=== PATIENT | female | born 1990 | race Caucasian/White ===

== ENCOUNTER 2018-03-23 19:15 | Emergency (ER) | payer SELFPAY ==
[~2018-03-23] VITALS: Ht 162.6 cm; Wt 83.6 kg
[~2018-03-23 19:15] MED LIST: AUGMENTIN875 MG OR; MACROBID100 MG PO; PRENATAL1 TA1 PO; ROBITUSS11 OR
[2018-03-23] MEDS ORDERED: BACTRIM DS1 TAB PO (19:51)
[2018-03-23] MEDS ORDERED: PERCOCET 5/325M1 TAB PO (19:51)
[2018-03-23] MEDS ORDERED: KEFLEX500 M1 PO (19:51)
[2018-03-23 20:34] VITALS: BP 122/83
== END 2018-03-23 20:34 | disposition home or self-care (01) | DRG 607 ==
LOC: ED 19:15
DX: S30.861A Insect bite (nonvenomous) of abdominal wall, initial encounter (principal); S80.861A Insect bite (nonvenomous), right lower leg, initial encounter; L08.9 Local infection of the skin and subcutaneous tissue, unspecified; W57.XXXA Bitten or stung by nonvenomous insect and other nonvenomous arthropods, initial encounter

== ENCOUNTER 2018-07-07 18:00 | Emergency (ER) | payer SELFPAY ==
[~2018-07-07] VITALS: Ht 162.6 cm; Wt 82.0 kg
[~2018-07-07 18:00] MED LIST changes: +BACTRIM DS1 TAB PO; +KEFLEX500 M1 PO; +PERCOCET 5/325M1 TAB PO
[2018-07-07] MEDS ORDERED: FLEXERIL PO (19:52)
[2018-07-07] MEDS ORDERED: LORTAB 1010 MG PO (19:52)
[2018-07-07] MEDS ORDERED: (None)3.5 GM OU (19:56)
[2018-07-07] MEDS ORDERED: GENTAMICIN15 ML/BTL OU (19:56)
[2018-07-07 20:00] VITALS: BP 112/77
== END 2018-07-07 20:43 | disposition home or self-care (01) | DRG 552 ==
LOC: ED 18:00
DX: M51.37 Other intervertebral disc degeneration, lumbosacral region (principal); M48.07 Spinal stenosis, lumbosacral region; H10.9 Unspecified conjunctivitis

== ENCOUNTER 2022-08-12 14:51 | Emergency (ER) | payer SELFPAY ==
[~2022-08-12] VITALS: Ht 162.6 cm; Wt 86.1 kg
[~2022-08-12 14:51] MED LIST changes: +(None)3.5 GM OU; +FLEXERIL PO; +GENTAMICIN15 ML/BTL OU; +LORTAB 1010 MG PO
[2022-08-12] MEDS ORDERED: MAXITROL0.1 % OD (15:40)
[2022-08-12 15:56] VITALS: BP 127/88
== END 2022-08-12 16:03 | disposition home or self-care (01) | DRG 125 ==
LOC: ED 14:51
DX: H18.821 Corneal disorder due to contact lens, right eye (principal)

== ENCOUNTER 2024-01-07 09:31 | Emergency (ER) | payer SELFPAY ==
[2024-01-07] VITALS (8 sets, daily range): BP systolic 114–148; BP diastolic 74–93
[~2024-01-07] VITALS: Ht 162.6 cm; Wt 98.0 kg
[~2024-01-07 09:31] MED LIST changes: +MAXITROL0.1 % OD
[2024-01-07] MEDS ORDERED: LIDOcaine HCl 1% (Local Anesth.) 20 ML VIAL IM STA (09:58)
[2024-01-07] MEDS ORDERED: DOXYCYCLINE100 MG PO (09:59)
[2024-01-07] MEDS ORDERED: cefTRIAXone SODIUM 1 GM/VIAL SDV IM ONE (10:00)
[2024-01-07 10:23] LABS: URINE BILIRUBIN - DIPSTICK Negative (NEGATIVE); URINE BLOOD DIPSTICK Small (NEGATIVE); URINE GLUCOSE - DIPSTICK Negative (NEGATIVE); URINE KETONE Negative (NEGATIVE); URINE NITRITE - DIPSTICK Negative (Negative); URINE PROTEIN - DIPSTICK 30 mg/dL (NEG-TRACE); URINE SPECIFIC GRAVITY >=1.030; URINE UROBILINOGEN - DIPSTICK 0.2 E.U./dL (0.2)
[2024-01-07 10:27] LABS: URINE COLOR Yellow; URINE LEUK ESTERASE Small (NEGATIVE)
[2024-01-07 10:28] LABS: URINE BACTERIA MODERATE hpf; URINE EPITHELIAL CELLS MODERATE EPI/hpf (0-FEW)
[2024-01-07 10:44] LABS: URINE TRICHOMONAS FEW hpf
[2024-01-07] MEDS ORDERED: METRONIDAZOLE500 MG PO (10:52)
== END 2024-01-07 11:04 | disposition home or self-care (01) | DRG 759 ==
LOC: ED 09:31
PROVIDERS: Family Medicine
DX: A59.01 Trichomonal vulvovaginitis (principal); E66.9 Obesity, unspecified

== ENCOUNTER 2024-07-03 14:02 | Emergency (ER) | payer SELFPAY ==
[~2024-07-03] VITALS: Ht 162.6 cm; Wt 82.0 kg
[~2024-07-03 14:02] MED LIST changes: +DOXYCYCLINE100 MG PO; +METRONIDAZOLE500 MG PO
[2024-07-03 14:31] LABS: URINE BILIRUBIN - DIPSTICK Negative (NEGATIVE); URINE BLOOD DIPSTICK Small (NEGATIVE); URINE GLUCOSE - DIPSTICK Negative (NEGATIVE); URINE KETONE Negative (NEGATIVE); URINE NITRITE - DIPSTICK Negative (Negative); URINE PH 5.5 (4.5-8.0); URINE PROTEIN - DIPSTICK Trace mg/dL (NEG-TRACE); URINE SPECIFIC GRAVITY >=1.030; URINE UROBILINOGEN - DIPSTICK 0.2 E.U./dL (0.2)
[2024-07-03 14:33] LABS: URINE COLOR Yellow; URINE EPITHELIAL CELLS MODERATE EPI/hpf (0-FEW); URINE LEUK ESTERASE Small (NEGATIVE)
[2024-07-03] MEDS ORDERED: METRONIDAZOLE500 MG PO (14:33)
[2024-07-03 14:34] LABS: URINE BACTERIA FEW hpf
[2024-07-03 14:53] VITALS: BP 132/97
== END 2024-07-03 14:53 | disposition home or self-care (01) | DRG 759 ==
LOC: ED 14:02
PROVIDERS: Family Medicine
DX: A59.01 Trichomonal vulvovaginitis (principal)